=== PATIENT | female | born 1965 | race Caucasian/White ===

== ENCOUNTER → 2016-10-23 09:51 | Outpatient (CLI) | payer BC | END | disposition home or self-care (01) | LOC: D.RAD 09:51 | DX: M25.552 Pain in left hip (principal) ==

== ENCOUNTER 2018-07-07 07:31 | Emergency (ER) | payer BC ==
[~2018-07-07] VITALS: Ht 167.6 cm; Wt 104.5 kg
[2018-07-07 07:34] VITALS: Ht 167.6 cm; Wt 104.5 kg
[2018-07-07] MEDS ORDERED: ESTRACE 0.0142.5 GM (07:36)
[2018-07-07] MEDS ORDERED: BENICAR HCT 201 EAC1 PO (07:37)
[2018-07-07 08:15] LABS: HEMATOCRIT 39.4 % (36.0-48.0); LYMPHOCYTES 18.7 % (15-50); MCH 26.7 pg (26.0-34.0); MCV 80.9 fL (80.0-100.0); MEAN PLATELET VOLUME 9.1 fL (7.4-10.4); NEUTROPHILS 69.6 % (40-80); PLATELET COUNT 279 10x3/uL (130-400); RBC 4.87 10x6/uL (4.00-5.40); RDW 13.2 % (11.5-14.5); WBC 8.4 10x3/uL (4.8-10.8)
[2018-07-07 08:29] LABS: ALBUMIN 3.5 g/dL (3.4-5.0); ALKALINE PHOSPHATASE 74 U/L (46-116); ALT (SGPT) 35 U/L (10-68); BILIRUBIN - TOTAL 0.31 mg/dL (0.2-1.3); CALC OSMOLALITY 276 mosm/kg (275-300); CALCIUM 9.1 mg/dL (8.5-10.1); CARBON DIOXIDE 27.2 mmol/L (21.0-32.0); CHLORIDE - SERUM 101 mmol/L (98-107); CREATININE - SERUM 1.2 mg/dL (0.6-1.3); GLUCOSE 128 mg/dL (74-106); POTASSIUM - SERUM 3.6 mmol/L (3.5-5.1); PROTEIN - SERUM 7.5 g/dL (6.4-8.2); SODIUM 137 mmol/L (136-145); UREA NITROGEN 16 mg/dL (7-18); eGFR NON AFRICAN AMERICAN 50 mL/min (90-120)
[2018-07-07 08:39] LABS: AMYLASE - SERUM 165 U/L (25-115); LIPASE 120 U/L (73-393); PRO BNP 12 pg/mL (0-125); TROPONIN-I < 0.017 ng/mL (0.000-0.060)
[2018-07-07 09:05] LABS: KETONE - SERUM NEGATIVE (NEGATIVE)
[2018-07-07 09:29] LABS: APPEARANCE SL CLDY (CLEAR); BILIRUBIN NEGATIVE (NEGATIVE); COLOR YELLOW (YELLOW); GLUCOSE NEGATIVE (NEGATIVE); KETONE NEGATIVE (NEGATIVE); NITRITE NEGATIVE (NEGATIVE); PROTEIN NEGATIVE (NEGATIVE); SPECIFIC GRAVITY 1.025 (1.005-1.020); UROBILINOGEN NORMAL (NORMAL)
[2018-07-07 09:33] LABS: BACTERIA MANY /hpf (NONE SEEN); EPITHELIAL CELLS 0-5 /hpf (0-5); HYALINE CAST OCC /lpf (NONE SEEN); MUCUS >1+ /lpf (NONE SEEN)
[2018-07-07] MEDS ORDERED: MACROBID100 MG PO ×2 (09:37→10:33)
[2018-07-07 10:42] VITALS: BP 119/73
== END 2018-07-07 10:49 | disposition home or self-care (01) ==
LOC: D.ER 07:31
PROVIDERS: Emergency Medicine
DX: N39.0 Urinary tract infection, site not specified (principal)